=== PATIENT | male | born 1980 | race Two or more races ===

== ENCOUNTER 2022-08-19 17:12 | Emergency (ER) | payer SELFPAY ==
[2022-08-19 17:23] VITALS: RESP 18; BMI 27.3
[2022-08-19] MEDS ORDERED: FAMOTIDINE 20 MG/50 ML IVPB 20 MG/50 ML MG IVPB ONE ×2 (17:55→18:30)
[2022-08-19] MEDS ORDERED: ONDANSETRON 4 MG/2 ML VIAL IVPUSH ONE (17:55)
[2022-08-19] MEDS ORDERED: SODIUM CHLORIDE 0.9% 500 ML INFUS.BAG IV ONE (17:55)
[2022-08-19] MEDS ORDERED: MAG HYDROX/AL HYDROX/SIMETH 30 ML UNIT-DOSE CUP PO ONE (17:55)
[2022-08-19] MEDS ORDERED: LACTATED RINGERS SOLUTION 1,000 ML/1,000 ML INFUS.BAG IV SCH (18:00)
[2022-08-19] MEDS ORDERED: ALBUTEROL SO4 HFA INHALER IH ONE ×2 (18:25→18:29)
[2022-08-19] MEDS ORDERED: MAG HYDROX/AL HYDROX/SIMETH 30 ML UNIT-DOSE CUP ONE (18:29)
[2022-08-19] MEDS ORDERED: ONDANSETRON 4 MG/2 ML VIAL ONE (18:29)
[2022-08-19 19:19] LABS: BASO % 0.6 % (0-2.0); EOS % 1.8 % (0-4.5); HEMOGLOBIN 14.9 GM/dL (11.7-16.9); LYMPH % 33.9 % (8-40); MCH 29.9 pg (25.7-33.7); MCHC 33.9 g/dl (32.0-35.9); MEAN CELL VOLUME 88.2 fl (80-96); MEAN PLT VOLUME 9.2 fl (7.5-11.1); MONO % 9.2 % (3.8-10.2); NEUT % 54.5 % (42.8-82.8); PLATELET COUNT 256 10^3/uL (134-434); RBC 4.99 M/mm3 (4.00-5.60); RDW 12.7 % (11.9-15.9); WHITE BLOOD COUNT 6.5 K/mm3 (4.0-10.0)
[2022-08-19 19:30] LABS: INR 1.14 (0.83-1.09); PROTHROMBIN TIME (PATIENT) 13.2 SEC (9.7-13.0)
[2022-08-19 19:32] LABS: ACTIVATED PTT 33.7 SECONDS (25.2-36.5)
[2022-08-19 19:42] VITALS: BP 121/84; PULSE 69
[2022-08-19 19:54] LABS: BLOOD UREA NITROGEN 15.6 mg/dL (7-18); CALCIUM 8.9 mg/dL (8.5-10.1); MAGNESIUM 2.1 mg/dL (1.8-2.4)
[2022-08-19 19:56] LABS: CREATININE 0.8 mg/dL (0.55-1.3); PHOSPHOROUS 3.8 mg/dL (2.5-4.9)
[2022-08-19 19:59] LABS: BILIRUBIN,TOTAL 0.5 mg/dL (0.2-1)
[2022-08-19 20:49] LABS: EPI CELLS 4 /uL (0-25.1); HYALINE CASTS 1 /uL (0-3.1); PH,URINE 5.5 (5.0-8.0); URINE APPEARANCE CLEAR; URINE BACTERIA 0 /uL (0-1359); URINE BILIRUBIN NEGATIVE (NEGATIVE); URINE COLOR YELLOW; URINE GLUCOSE (UA) NEGATIVE (NEGATIVE); URINE KETONE TRACE (NEGATIVE); URINE LEUK ESTERASE NEGATIVE (NEGATIVE); URINE NITRITE NEGATIVE (NEGATIVE); URINE PROTEIN 1+ (NEGATIVE); URINE RBC 13 /uL (0-23.9); URINE WBC 5 /uL (0-25.8)
[2022-08-19 21:03] VITALS: TEMP 98.1
[2022-08-19] MEDS ORDERED: AZITHROMYCIN 250 MG TABLET PO ONE (21:06)
[2022-08-19 21:19] LABS: URINE CRYSTALS 1+ CALCIUM OXALATES /hpf
[2022-08-19] MEDS ORDERED: AZITHROMYCIN 500 MG TABLET ONE (22:32)
== END 2022-08-19 23:02 | disposition home or self-care (01) ==
LOC: JER 17:12
PROC: 3E033GC Introduction of Other Therapeutic Substance into Peripheral Vein, Percutaneous Approach (ICD-10-PCS; principal; 2022-08-19)
PROC: 3E033GC Introduction of Other Therapeutic Substance into Peripheral Vein, Percutaneous Approach (ICD-10-PCS; 2022-08-19)
DX: J18.9 Pneumonia, unspecified organism (principal); R19.7 Diarrhea, unspecified
CPT/HCPCS: 0241U-QW; 36415; 71045-TC-FY; 80053; 81003; 83690; 83735; 84100; 84484; 85025; 85610; 85730; 87899; 93005; 93010; 99285-25